=== PATIENT | male | born 1965 | race Caucasian/White ===

== ENCOUNTER → 2016-07-30 | Outpatient (REF) | payer OTHER | LOC: M SFHCLERA 09:37 | PROVIDERS: ATTEND Family Medicine | DX: R73.02 Impaired glucose tolerance (oral) (principal) ==

== ENCOUNTER → 2017-07-26 | Outpatient (REF) | payer OTHER ==
[2017-07-26 12:39] LABS: ANION GAP 9 MEQ/L (8-16); BLOOD UREA NITROGEN 18 MG/DL (7-18); CALCIUM LEVEL 9.5 MG/DL (8.5-10.1); CARBON DIOXIDE LEVEL 29 MEQ/L (21-32); CHLORIDE LEVEL 103 MEQ/L (98-107); CHOLESTEROL LEVEL 209 MG/DL (<200); CHOLESTEROL RISK RATIO 3.732 (<5); CREATININE FOR GFR 0.84 MG/DL (0.70-1.30); GLOMERULAR FILTRATION RATE > 60.0 (>56); GLUCOSE, FASTING 99 MG/DL (70-100); HDL CHOLESTEROL 56 MG/DL (>40); LDL CHOLESTEROL 135.8 MG/DL (<100); NON-HDL-C 153 MG/DL; POTASSIUM SERUM 4.8 MEQ/L (3.5-5.1); SODIUM LEVEL 141 MEQ/L (136-145); TRIGLYCERIDES LEVEL 86 MG/DL (<150)
[2017-07-26 13:26] LABS: ESTIMATED AVERAGE GLUCOSE 117 MG/DL (60-110); HEMOGLOBIN A1c 5.7 %
== END ==
LOC: M SFHCLERA 08:07
DX: R73.03 Prediabetes (principal)

== ENCOUNTER → 2017-08-22 | Outpatient (REF) | payer OTHER ==
[2017-08-22 12:26] LABS: ALBUMIN 4.1 GM/DL (3.2-5.2); ALBUMIN/GLOBULIN RATIO 1.21 (1.00-1.93); ALKALINE PHOSPHATASE 103 U/L (45-117); ALT/SGPT 34 U/L (12-78); AST/SGOT 17 U/L (7-37); BILIRUBIN,DIRECT 0.2 MG/DL (0.0-0.2); BILIRUBIN,TOTAL 0.8 MG/DL (0.2-1.0); PSA SCREENING 0.81 NG/ML (< 4.0); TOTAL PROTEIN 7.5 GM/DL (6.4-8.2)
== END ==
LOC: M SFHCLERA 07:57
DX: Z00.00 Encounter for general adult medical examination without abnormal findings (principal)

== ENCOUNTER → 2019-03-11 | Outpatient (REF) | payer OTHER | LOC: M LAB REF 09:39 | PROVIDERS: ATTEND Nurse Practitioner Family | DX: J02.9 Acute pharyngitis, unspecified (principal) ==